=== PATIENT | male | born 1945 ===

== ENCOUNTER 2020-04-20 07:05 | Inpatient (IN) | payer OTHER ==
[~2020-04-20] VITALS: Ht 167.6 cm; Wt 74.8 kg
[2020-04-20] MEDS ORDERED: VALIUM2 MG PO (07:40)
[2020-04-20] MEDS ORDERED: LASIX20 MG PO (07:43)
[2020-04-20] MEDS ORDERED: LINZESS145 MC1 PO (07:44)
[2020-04-20] MEDS ORDERED: CARBIDOPA-LEVO1 EAC2 PO (07:45)
[2020-04-20] MEDS ORDERED: NEUPRO1 EAC4 TD (07:45)
[2020-04-20] MEDS ORDERED: KEPPRA500 MG PO (07:47)
[2020-04-20] MEDS ORDERED: KEPPRA1000 MG PO (07:47)
[2020-04-20] MEDS ORDERED: VIMPAT50 MG PO (07:49)
[2020-04-20] MEDS ORDERED: NUPLAZID34 MG PO (07:50)
[2020-04-20] MEDS ORDERED: ESTER-C 500 MG1 EACH PO (07:51)
[2020-04-20] MEDS ORDERED: BREO ELLIPTA 21 EACH INH (07:51)
[2020-04-20] MEDS ORDERED: PLAVIX75 M1 PO (07:52)
[2020-04-20] MEDS ORDERED: COLACE100 MG PO (07:52)
[2020-04-20] MEDS ORDERED: TYLENOL EXTRA500 M2 PO (07:52)
[2020-04-20] MEDS ORDERED: PROAIR HFA8.5 GM INH (07:53)
[2020-04-20] MEDS ORDERED: OXYGEN NAS (07:54)
[2020-04-20] MEDS ORDERED: PEPCID20 MG PO (07:54)
[2020-04-20] MEDS ORDERED: LISINOPRIL2.5 MG PO (07:54)
[2020-04-20] MEDS ORDERED: PROPRANOLOL HCL20 MG PO (07:55)
[2020-04-20] MEDS ORDERED: ATIVAN1 MG PO (07:55)
[2020-04-20] MEDS ORDERED: MULTIVITAMIN1 EACH PO (07:56)
[2020-04-20] MEDS ORDERED: REMERON15 M2 PO (07:57)
[2020-04-20] MEDS ORDERED: VYTORIN PO (08:04)
--- NOTE | 2020-04-20 09:00 | NUR ---
Treatment Plan meeting was held this a.m. with Dr. Azul RN, RADIOGRAPHY TECHNICIAN-S and Remodeler. Plan for discharge Friday. Pt. will return to [facility].
--- NOTE | 2020-04-20 09:02 | NUR ---
TIA EAST a 74 year old M admitted via ambulance from the ADMITTING as a emergency 72 hr. hold admission. Arrived on unit at 0902. ALLERGIES: ACIPHEX, ADVAIR, ASPIRIN, AILANTIN, IMITREX, LIPITOR, RISPERDAL, ZYPREXA. Vital signs are: [phone]/79. The client signed the following forms with stated understanding: Authorization For The Release of Medical Information, Clothing List, Consent to Voluntary Admission and Hospitalization, Consent and Release Forms/Receipt of Rights, Acknowledgement of Advance Directive Information, Behavioral Health Consent Form, and Informed Consent of Medications. Admitted under the services of Dr. SHALINI GARCIA,[facility]. A search was conducted and hazardous articles were removed. Client was oriented to the unit. JULIA LAY
[2020-04-20 09:25] VITALS: BP 152/79
[2020-04-20] MEDS ORDERED: VITAMIN D3125 MCG PO (10:17)
--- NOTE | 2020-04-20 10:20 | NUR ---
DR. IGNACIO NOTIFIED OF PATIENT BEING ADMITTED TO UNIT. MEDICAITONS AND DIAGNOSIS UPDATED FOR REVIEW. PATIENT WILL BE UNDER THE CARE OF DR. PACKER.
--- NOTE | 2020-04-20 11:00 | NUR ---
DAUGHTER SILVIO CALLED INTO REVIEW MEDICATIONS, THIS NURSE RETURNED CALLED. THIS NURSE INQUIRED PER DR LOYA'S ORDER IF THE PT HAS HAD ANY RECENT CHANGES IN KEPPRA DOSAGE AND WHY WAS THE NUPLAZID DISCONTINUED LAST MONTH. ENTIRE MED LIST REVIEWED WITH DAUGHTER, PER DAUGHTER, THE PT HAS BEEN TAKING THE KEPPRA FOR OVER A YEAR WITHOUT ANY CHANGES, THE NUPLAZID WAS DISCONTIUED ON Mar, PER HER REQUEST BECAUSE SHE THOUGHT IT WAS MAKING HIM HALLUCINATE WORSE. THE DAUGHTER ALSO QUESTIONED IF WE COULD SPEAK WITH THE DR ABOUT HIS KEPPRA AND HAVE IT CHANGED, THIS NURSE ADVISED THAT THE DR WILL NOT MAKE CHANGES TO HIS KEPPRA WITHOUT HAVING A BARBY DR ON STAFF DUE TO HIS SEIZURE HISTORY, THE DAUGHTER STATED "OK I'LL JUST TALK TO HIS DOCTOR AT THE NEXT APPT. BUT I'D LIKE TO TELL YOU THAT HIS INDERAL CAUSES HIM TO HAVE NIGHTMARES, AND THE VIMPAT CAUSES HIM TO BE ANGRY." THIS NURSE ADVISED THAT I WUULD PASS ALONG HER CONCERNS TO THE DOCOTR. DAUGHTER STATED "I GUESS I SHOULD TELL YOU THAT I HAVE ALSO BEEN GIVING HIM CBD GUMMIES THAT ARE 10MG THREE TIMES EVERYDAY." THIS NURSE ASKED WHY AND DAUGHTER STATED "TO HELP HIM." DOCTOR LOYA UPDATED ON MEDS AND DAUGHTERS REQUEST, NO FURTHER ORDERS AT THIS TIME.
--- NOTE | 2020-04-20 11:38 | NUR ---
PHYSICAL THERAPY Screen and PT eval received will follow thank you Supriya Howard PT
[2020-04-20 11:39] LABS: CLARITY TURBID (CLEAR); COLOR YELLOW (YELLOW)
[2020-04-20 11:40] LABS: BILIRUBIN NEGATIVE; BLOOD 1+ (NEGATIVE); GLUCOSE NEGATIVE; KETONE NEGATIVE; LEUKO ESTERASE 3+ (NEGATIVE); NITRITE POSITIVE (NEGATIVE); PH 5.5 (4.5-8.0)
[2020-04-20 11:41] LABS: BACTERIA 1+; RBC 0-2 rbc/hpf (0-2)
[2020-04-20 11:46] LABS: WBC TNTC wbc/hpf (0-5)
--- NOTE | 2020-04-20 12:05 | NUR ---
SPOKE WITH DR IGNACIO RE: PT UA RESULTS, RESULTS REVIEWED WITH DR, NO FURTHER ORDERS AT THIS TIME.
--- NOTE | 2020-04-20 13:00 | NUR ---
CALLED IN TO CHECK ON PT, ASKED IF PT WAS GOING TO CONTINUE TAKING HIS REMERON. THIS NURSE ADVISED THAT PT REMERON WAS DISCONTINUED BY THE DR UPON ADMISSION, STATED, "OH WELL, I WAS GOING TO STOP GIVING THAT TO HIM TONIGHT, BECAUSE HE TOOK IT THE OTHER NIGHT AND WHEN HE WOKE UP IN THE MORNING, HE WAS HAVING TROUBLE WALKING AND WHEN WE LOOKED IT UP IT SAID THAT IT COULD CAUSE PROBLEMS WITH WALKING." THIS NURSE ADVISED THAT THE DR DISCOUNTINED REMERON IN ORDER TO START SEROQUEL.
[2020-04-20] MEDS ORDERED: Sinemet Cr 50/21 TAB PO (13:42)
--- NOTE | 2020-04-20 14:50 | NUR ---
NASAL SWAB COLLECTED FOR COVID 19, PATIENT TOLERATED WELL AND SPECIMEN SENT TO LAB.
--- NOTE | 2020-04-20 15:00 | NUR ---
PATIENT IS ALERT TO PERSON, PLACE, TIME AND SIUTATION; ABLE TO VOICE NEEDS. MOOD IS SLIGHTLY DEPRESSED. DENIES HALLUCINATIONS, DELUSIONS, HI/SI OR PAIN. PATIENT HAS VISUAL TREMORS/EPS TO BILATERAL UPPER EXTREMITIES, EYE BROWS AND BLINKING OF EYES. MEDICATION COMPLAINT. Q 15 MINUTE SAFETY CHECKS. ONE PERSON ASSIST WITH ACTIVITIES OF DAILY LIVING, CONTINENT OF BOWEL AND BLADDER, SET UP FOR MEALS, INTAKES ARE GOOD WITH ADEQUATE FLUIDS. 1 PERSON STANDBY ASSIST WITH AMBULATORY USING WALKER. CONTINUE TO MONITOR FOR AUDITORY AND VISUAL HALLUCINATIONS. PROVIDE ONE ON ONE FOR EMOTIONAL SUPPORT, REORIENT TO REALITY NEEDED.
--- NOTE | 2020-04-20 15:07 | NUR ---
Pt pleasant this afternoon during interaction with this teletypewriter installer. Pt participated in group discussion about simple pleasures in life. Pt spoke of gardening and whitman that he cares for at his apartment. Pt was appropriate in conversation. No hallucinations or delusions were voiced by pt.
[2020-04-20 20:00] VITALS: BP 150/84
--- NOTE | 2020-04-20 20:13 | NUR ---
24 HR chart check completed.
--- NOTE | 2020-04-20 21:18 | NUR ---
MILDLY DEPRESSED MOOD. PT STATED THAT HE "FEELS BETTER. NAPPED THIS AFTERNOON & FELT BETTER WHEN I WOKE UP". ALERT & ORIENTED TO PERSON, PLACE, TIME & SITUATION. DENIES SENSORY DISTURBANCE & NONE IS EVIDENT. NO DELUSIONAL STATEMENTS VOICED. PLEASANT & APPROPRIATE INTERACTIONS WITH STAFF. SAT IN THE DINING ROOM & KEPT TO HIMSELF. SPENT LEISURE TIME COLORING. ATE SNACK. COMPLAINT TAKING MEDICATIONS WHOLE & MIXED IN APPLESAUCE. VISUAL TREMORS NOTED ESPECIALLY TO LEFT ARM. PT IS AWARE OF TREMORS & DOES NOT USE LEFT HAND TO ASSIST WITH EATING/DRINKING. VERY MILD TO RIGHT HAND NONE NOTED TO EYES & EYEBROWS THIS EVENING.
--- NOTE | 2020-04-21 05:45 | NUR ---
PT HAS SLEPT PAST 2244
[2020-04-21 07:16] LABS: BASO % 0.6 % (0.0-1.0); EOS # 0.2 10*3/uL (0.0-0.4); EOS % 2.1 % (1.0-4.0); HEMATOCRIT 42.2 % (42.0-52.0); LYMPH % 28.3 % (27.0-41.0); MEAN CELL VOLUME 97.5 fl (80.0-94.0); MEAN CORPUSCULAR HGB 30.5 pg (27.0-31.0); MEAN CORPUSCULAR HGB CONC 31.3 g/dl (33.0-37.0); MEAN PLATELET VOLUME 9.8 fl (9.6-12.3); MONO % 14.6 % (3.0-9.0); NEUT # 3.8 10*3/uL (2.3-7.9); NEUT % 54.1 % (47.0-73.0); PLATELET COUNT AUTOMATED 262 10*3/uL (130-400); RED BLOOD COUNT 4.33 10*6/uL (4.50-5.90); RED CELL DISTRI WIDTH 12.9 % (0-14.5); WHITE BLOOD COUNT 7.1 10*3/uL (4.8-10.8)
[2020-04-21 07:26] VITALS: BP 112/69
[2020-04-21 07:32] LABS: ALBUMIN 3.1 gm/dl (3.1-4.5); ALKALINE PHOSPHATASE 79 U/L (45-117); BUN 16 mg/dl (7-24); CHLORIDE 102 mmol/L (98-107); CHOLESTEROL 108 mg/dL (<200); CREATININE 0.73 mg/dL (0.70-1.30); HDL CHOLESTEROL 54 mg/dl (40-60); LDL CHOLESTEROL 43 mg/dL (9-159); SGOT/AST 17 IU/L (3-35); SGPT/ALT 12 U/L (12-78); SODIUM 140 mmol/L (136-145); TOTAL PROTEIN 6.9 gm/dL (6.4-8.2); TRIGLYCERIDES 54 mg/dl (<150); VLDL CHOLESTEROL 11 mg/dL (6-40)
[2020-04-21 07:39] LABS: THYROID STIM HORMONE (HS) 0.991 uIU/ml (0.358-4.75)
--- NOTE | 2020-04-21 07:49 | NUR ---
Occupational therapy order and nursing screen received. Will follow up with the patient for completion of an OT eval. Thank you. Rebeca Walker OTR/L
--- NOTE | 2020-04-21 08:30 | NUR ---
Treatment Plan meeting was held this a.m. with PARVEEN Smith, RN, AT, LUBA-S and Tariff Clerk. Plan for discharge Next Week. Pt. will return home at discharge.
[2020-04-21 08:35] LABS: VITAMIN D, 25-HYDROXY 54.1 ng/mL (30-100)
--- NOTE | 2020-04-21 09:05 | NUR ---
DR. BENTON ON UNIT TO ASSESS PATIENT.
--- NOTE | 2020-04-21 11:36 | NUR ---
AM GROUP PT ATTENDED MORNING GROUP THERAPY AND PARTICIPATED BY PAINTING A BIRDHOUSE. PT WAS ON TASK AND TALKATIVE. PT EXPRESSED NO A.V. HALLUCINATIONS IN GROUP NOR WAS AGGRESSIVE.
--- NOTE | 2020-04-21 11:55 | NUR ---
Faxed admission clinical to [facility], awaiting response.
--- NOTE | 2020-04-21 12:52 | NUR ---
P: SLIGHT DEPRESSED BUT FEELING BETTER. I: ONE ON ONE FOR EMOTIONAL SUPPORT, ENCOURAGE GROUP ACTIVITIES AND SOCIAL INTERACTIONS WITH STAFF AND OTHER PATIENTS. R: EFFECTIVE. PATIENT IS ALERT TO PERSON, PLACE, TIME AND SITUATION; ABLE TO VOICE NEEDS. MOOD IS SLIGHTLY DEPRESSED. IMPROVEMENT NOTED SINCE YESTERDAY. DENIES ANY HALLUCINATIONS, DELUSIONS, HI/SI OR PAIN. NO RESPONSE TO INTERNAL STIMULI OBSERVED. PATIENT ATTEND AND PARTRICIPATED IN GROUP SESSION. PATIENT PAINTING BIRD HOUSE. NO TREMORS TO LEFT HAND OBSERVED WHILE PAINTING. NO REPEATIVE EYE BROW RAISING OR EYE BLINKING OBSERVED. MEDICATION COMPLAINT WITH EDUCATION PROVIDED. Q 15 MINUTE SAFETY CHECKS MAINTAINED. ONE PERSON ASSIST WITH ACTIVITIES OF DAILY LIVING, CONTINENT OF BOWEL AND BLADDER. SET UP FOR MEALS, INTAKES ARE GOOD WITH ADEQUATE FLUIDS. AMBULATES USING WHEELED WALKER. P: CONTINUE TO MONITOR FOR MOOD, INCREASED CONFUSION, HALLUCINATIONS OR DELUSIONS. PROVIDE ONE ON ONE, REDIRECTION/ORIENTATION TO REALITY NEEDED.
--- NOTE | 2020-04-21 15:35 | NUR ---
PM GROUP PT ATTENDED AFTERNOON GROUP THERAPY AND PARTICIPATED BY PAINTING HIS BIRDHOUSE. PT WAS ON TASK AND TALKATIVE. PT EXHIBITED NO ADVERSE BEHAVIORS WHILE IN GROUP.
[2020-04-21 19:56] VITALS: BP 115/67
--- NOTE | 2020-04-21 20:14 | NUR ---
24 HR chart check completed.
--- NOTE | 2020-04-21 22:35 | NUR ---
P-MILDLY DEPRESSED MOOD. I-ALLOW PT TO VERBALIZE FEELINGS & PROVIDE EMOTIONAL SUPPORT R- PT STATED THAT HE "FEELS BETTER". APPEARS MILDLY DEPRESSED. SAT IN THE DINING ROOM COLORING WITH COLORED PENCILS. ALERT & ORIENTED TO PERSON, PLACE, TIME & SITUATION. DENIES SENSORY DISTURBANCE & NONE IS EVIDENT. NO DELUSIONAL STATEMENTS VOICED. PLEASANT & APPROPRIATE INTERACTIONS WITH STAFF. ATE SNACK. COMPLAINT TAKING MEDICATIONS WHOLE & MIXED IN APPLESAUCE. VISUAL TREMORS NOTED ESPECIALLY TO LEFT ARM. PT IS AWARE OF TREMORS & DOES NOT USE LEFT HAND TO ASSIST WITH EATING/DRINKING. VERY MILD TO RIGHT HAND. P-CONTINUE TO MONITOR
--- NOTE | 2020-04-22 05:26 | NUR ---
PT HAS SLEPT PAST 2314
[2020-04-22 07:50] VITALS: BP 145/82
--- NOTE | 2020-04-22 09:13 | NUR ---
on unit to see pt at this time. Made aware of urine culture 50,000 moderate GNB - ESBL. Reviewed culture/sensitivity. states he will d/c Ceftin. No need for further atb tx.
--- NOTE | 2020-04-22 11:06 | NUR ---
notified pt requesting Breo inhaler. Placed on hold at admission per med rec. States she will review.
--- NOTE | 2020-04-22 11:14 | NUR ---
P- Pt denies feeling sad, depressed or hopeless. States he is "just a little tired". Pt voices desire to go home because he misses his . I- Orientation, mood and behaviors assessed. Assessed pt for SI/HI, intent or plan. Assessed pt for s/s hallucinations, paranoia and/or delusions. Medications administered as per physician's orders. Assistance with ADL care provided as needed. Encouraged pt to attend and participate in taylor milieu groups and activities. R- Pt is alert and oriented to person, place, approximate time and situation. Pt states it is March 22, 2020. Reorientation provided and effective. Resps easy and even on room air. Mood appears stable, affect blunted. Speech is soft, coherent, able to make needs known without difficulty. Pt denies feeling sad, depressed, anxious or hopeless. Pt reports feeling "just a little tired" and is missing his . Pt states he is feeling better. Pt denies SI/HI, intent or plan. Pt denies hallucinations, no response to internal stimuli noted. No paranoia or delusions noted. No aggressive or threatening behaviors. Pt is medication compliant without difficulty. Calm and cooperative. Pt called and had pleasant conversation with on phone. Participating in group craft activities. Tremors noted BUE. No distress noted. P- Plan to continue current treatment. Continue to monitor mood and behaviors, provide appropriate reorientation and redirection as needed. Continue to encourage medication compliance as well as group attendance and participation.
--- NOTE | 2020-04-22 14:22 | NUR ---
Spoke with pt's soco Wahl regarding needing home medications Breo and Neupro patch d/t these medications being nonformulary. Maryuri states she can drop them off later this evening after she gets off work around 8pm. Pt made aware.
--- NOTE | 2020-04-22 19:42 | NUR ---
24 HR chart check completed.
[2020-04-22 19:48] VITALS: BP 138/66
--- NOTE | 2020-04-22 21:50 | NUR ---
P-MILDLY DEPRESSED MOOD. I-ALLOW PT TO VERBALIZE FEELINGS & PROVIDE EMOTIONAL SUPPORT R-PT STATED THAT HE IS "FEELING BETTER". SAT IN THE DINING ROOM COLORING WITH COLORED PENCILS. ALERT & ORIENTED TO PERSON, PLACE, TIME & SITUATION. DENIES SENSORY DISTURBANCE & NONE IS EVIDENT. NO DELUSIONAL STATEMENTS VOICED. PLEASANT & APPROPRIATE INTERACTIONS WITH STAFF. ATE SNACK. COMPLAINT TAKING MEDICATIONS WHOLE & MIXED IN APPLESAUCE. VISUAL TREMORS NOTED ESPECIALLY TO LEFT ARM. DAUGHTER DID BRING HOME MEDS OF BREO & NEUPRO IN P-CONTINUE TO MONITOR
--- NOTE | 2020-04-22 23:01 | NUR ---
PTS DAUGHTER BROUGHT IN HEALTH CARE POWER OF SHIPYARD LABORER & LIVING WILL PAPERS. COPIES MADE & PUT ON THE CHART. ORIGINALS PLACED IN YELLOW ENVELOPE & ARE TO BE RETURNED WITH PT ON DISCHARGE.
[2020-04-23 07:42] VITALS: BP 144/80
--- NOTE | 2020-04-23 09:30 | NUR ---
on unit to see pt at this time, update given.
--- NOTE | 2020-04-23 15:14 | NUR ---
No adverse moods or behaviors noted this shift. Pt is alert and oriented x4. Resps easy and even on room air. Mood appears stable with appropriate affect. Speech is soft, coherent, able to make needs known without difficulty. Pt states he is feeling better, just a little tired at times. Pt denies SI/HI, intent or plan. Pt denies hallucinations, no response to internal stimuli noted. No paranoia or delusions noted. Pt is calm, pleasant and cooperative. No aggressive behaviors. Pt is medication compliant without difficulty. No distress noted. Plan to continue current treatment, continue to monitor mood and behaviors, provide appropriate reorientation and redirection as needed. Continue to encourage medication compliance as well as group attendance and participation.
[2020-04-23 20:00] VITALS: BP 146/73
--- NOTE | 2020-04-23 20:55 | NUR ---
Patient alert and oriented x4. Mood is calm,cooperative,and slightly depressed. Patient denies any SI/HI or hallucinations. No s/s of any responding to internal stimuli. Patient interactive with staff and other patients while in diningroom coloring pictures during snack. Patient compliant with HS medications without any difficulty. Provided 1:1 for emotional support and therapeutic communication. Plan to continue to encourage medication compliance. Also continue to provide emotional support and therapeutic communication. Will also continue to monitor moods/behaviors. Q 15 minute safety checks continued and maintained. See [facility] flowsheet for further documentation.
--- NOTE | 2020-04-24 05:44 | NUR ---
Patient slept approx. 7 hours throughout shift. Q 15 minute safety checks continued and maintained.
--- NOTE | 2020-04-24 07:40 | NUR ---
Faxed continued review stay clinical to [facility]. Awaiting response.
[2020-04-24 07:48] VITALS: BP 133/72
--- NOTE | 2020-04-24 11:06 | NUR ---
Treatment team meeting held this AM with Sarah Kwok CONFERENCE SERVICES MANAGER, RN, visual merchandising coordinator, kit planner, and LUBA-Judy. Discharge plan is for pt to return home with VNA and follow-up at [facility]. Tentative discharge date is tomorrow.
--- NOTE | 2020-04-24 11:32 | NUR ---
Contacted bert in [facility] for a follow up appointment. They stated patient has not been there since 2019 and would be considered a new patient. Faxed face sheet/H&P per her request to start referral for follow up appointment. Waiting for return call with appointment date and time
--- NOTE | 2020-04-24 11:44 | NUR ---
Patient has a follow up appoitment with [facility] on June 22 at 1:20 PM. Patients daughter is aware.
--- NOTE | 2020-04-24 12:15 | NUR ---
Called and spoke to Rosetta regarding possible discharge tomorrow 04/25/2020. She stated she would call her daughter and they would both be able to come down tomorrow and pick him up; stated I would call her in the morning to have a more accurate time of D/C.
--- NOTE | 2020-04-24 14:36 | NUR ---
No adverse moods or behaviors noted this shift. Pt is alert and oriented x4. Resps easy and even on room air. Mood appears stable with appropriate affect. Speech is soft, coherent, able to make needs known without difficulty. Pt states he is feeling better. Pt denies SI/HI, intent or plan. Pt denies hallucinations, no response to internal stimuli noted. No paranoia or delusions noted. Pt is calm, pleasant and cooperative. No aggressive behaviors. Pt is medication compliant without difficulty. Pt participating appropriately in group activies with peers. No distress noted. Plan to continue current treatment, continue to monitor mood and behaviors, provide appropriate reorientation and redirection as needed. Continue to encourage medication compliance as well as group attendance and participation.
--- NOTE | 2020-04-24 15:46 | NUR ---
PM GROUP/LEISURE INTERESTS PT ATTENDED AFTERNOON GROUP THERAPY AND PARTICIPATED BY WORKING ON HIS [employer] PROJECT. PT WAS ON TASK AND FOCUSED. PT ASKED SEVERAL TIMES, "DO YOU KNOW IF I WILL BE GOING HOME TOMORROW?" PT EXHIBITED NO ADVERSE BEHAVIORS WHILE IN GROUP
[2020-04-24 19:11] VITALS: BP 155/80
--- NOTE | 2020-04-24 22:24 | NUR ---
Patient alert and oriented x4. Mood is calm,cooperative,and slightly depressed. Patient denies any SI/HI or hallucinations. No s/s of any responding to internal stimuli. Patient interactive with staff and other patients while in diningroom coloring pictures during snack. Patient compliant with HS medications without any difficulty. Provided 1:1 for emotional support and therapeutic communication. Plan to continue to encourage medication compliance. Also continue to provide emotional support and therapeutic communication. Will also continue to monitor moods/behaviors. Q 15 minute safety checks continued and maintained. See [facility] flowsheet for further documentation.
--- NOTE | 2020-04-25 05:28 | NUR ---
Patient slept approx. 6.5 hours throughout shift. Q 15 minute safety checks continued and maintained.
--- NOTE | 2020-04-25 07:34 | NUR ---
Patient requiring home health services, referrals faxed to [facility] and [facility] services. Waiting on review/acceptance.
[2020-04-25 07:39] VITALS: BP 153/82
--- NOTE | 2020-04-25 08:08 | NUR ---
[facility] stating they do not service the [facility]. Still waiting on [facility] to review/accept.
[2020-04-25] MEDS ORDERED: DIAZEPAM2 MG PO (09:51)
[2020-04-25] MEDS ORDERED: QUETIAPINE FUMA50 M1 PO (09:51)
[2020-04-25] MEDS ORDERED: QUETIAPINE FUMA25 MG PO (09:51)
--- NOTE | 2020-04-25 09:58 | NUR ---
Treatment meeting held this AM with Sarah Teran ACCESS DIRECTOR, RN, clinic coordinator, MELISSA and planner/scheduler. Patient is discharged to return home today, home health orders/referral faxed to [facility]. Will also fax referral to [facility] per request of Sarah Teran.
--- NOTE | 2020-04-25 10:15 | NUR ---
CALL PLACED TO HOSPITALIST #1 FOR , SPOKE TO , MADE AWARE OF DISCHARGE FOR TODAY AT 1PM HOME WITH FAMILY.
--- NOTE | 2020-04-25 10:22 | NUR ---
Spoke with pt this AM. Pt states that he is "feeling good and ready to go home." Pt denies hallucinations. He was appropriate in conversation.
--- NOTE | 2020-04-25 10:25 | NUR ---
Treatment team held this AM with Sarah Herron NP, RN, medication coordinator, senior program planner, and MELISSA. Plan is to discharge pt today to home with VNA and follow-up at [facility].
--- NOTE | 2020-04-25 10:26 | NUR ---
Contacted Alexandre in [facility], they do not provide bubble packs for meds.
--- NOTE | 2020-04-25 10:28 | NUR ---
Family meeting held this AM with pt's daughter Maryuri Arroyo. Discussed pt's current and prior status. Discussed discharge needs and referral to VNA and exploring options for prepackaged meds for pt at home.
--- NOTE | 2020-04-25 10:32 | NUR ---
Spoke with [facility] at [phone] and started referral. They stated they will be calling the patient to start process. They do service the [facility].
--- NOTE | 2020-04-25 11:40 | NUR ---
AM GROUP PT WAS PRESENT AT THE START OF MORNING GROUP THERAPY BUT LEFT THE DAYROOM TO READY FOR DISCHARGE FROM THE UNIT THIS AFTERNOON.
--- NOTE | 2020-04-25 12:42 | NUR ---
Contacted Jose Carlos in [facility] @ [phone] to ask about follow up appointment. She stated the follow up appointment is on 05/23/2020 at 4:20 PM with Dewey Wright
--- NOTE | 2020-04-25 12:48 | NUR ---
Attemtped to contact [facility] to ask if they are accepting this referral. Unable to contact a live person, left a voicemail.
--- NOTE | 2020-04-25 13:24 | NUR ---
PT DISCHARGED AT THIS TIME TO HOME WITH FAMILY VIA PRIVATE VEHICLE. ALL DISCHARGE INSTRUCTIONS REVIEWED WITH PT PRIOR TO DISCHARGE. MEDICATIONS REVIEWED WITH VIA TELEPHONE WITH HER STATED UNDERSTANDING OF ALL. ENCOURAGED PT OR FAMILY TO PHONE UNIT IF THEY ENCOUNTER ANY QUESTIONS. ALL PERSONAL BELONGINGS WERE SENT HOME WITH THE PT INCLUDING HOME MEDS (BREO AND NEUPRO) AND WALKING CANE. PT LEFT THE UNIT IN STABLE CONDITION AT [address] [facility] MENTAL HEALTH WORKER.
--- NOTE | 2020-04-25 13:27 | NUR ---
IP 5 days arnel per Kathy at [facility], LCD 04/24. Ref # [id number]
--- NOTE | 2020-04-25 13:28 | NUR ---
Received call from Anjana at [facility]. They are accepting this patient; notified patient is discharged today.
--- NOTE | 2020-04-25 13:32 | NUR ---
Faxed discharge instructions and summary to [facility]
--- NOTE | 2020-04-25 13:47 | NUR ---
Patient discharged to home with his today. Follow-up was scheduled with [facility] on 05/23/20 at 16:[address] Wright and with Dr King on 05/04/20 at 14:00. While at [facility], pt's hallucinations and paranoid delusions resolved. Pt will also receive VNA through [facility]. Pt was pleasant with peers and staff. He participated in programming.
--- NOTE | 2020-04-25 14:29 | NUR ---
Discharge orders and discharge summary were faxed to [facility] and Dr King, pt's PCP.
--- NOTE | 2020-04-25 15:29 | NUR ---
Recieved call from pt's asking where his medications were escribed to. Advised the script for Seroquel was was escribed to [facility] in [place] and that they would have to take the paper script for Valium to [facility]. states "No. I had a call from a woman named Shantelle from [facility] who left a message on my machine. I don't know what she wants. I have her number". This RN asks if she was tried to continuous pickling line pickler [facility]. states "[facility]". provides phone number, for Shantelle. This RN advises I would call the pharmacy and attempt to sort this out for her and call her back. Spoke to pharmacist at [facility] in [place] and confirmed that they had recieved e-prescriptions for Seroquel 25mg at AM and 50mg at HS. Pharmacists states those scripts are ready to be picked up. Spoke to Elvira in [facility] who advises [facility] offers a service called [facility] which this pt was referred to for possible blister packs to assist with medication compliance. This RN phones pt's back and advises of the above. seems hesistant regarding the [facility] service and states "I have been managing his medications for 22 years, I can handle it". This RN encourages to phone Shantelle back to learn more about what this service has to offer. [facility] made [facility] the above and will reach out to family to discuss further.
--- NOTE | 2020-04-27 11:33 | NUR ---
JUDY COMPLETED POST DISCHARGE WELLNESS FOLLOW UP FORM WITH PATIENTS SPOUSE LYN. NO SAFETY CONCERNS WERE NOTED. SHE REPORTED PATIENT HAS BEEN SLEEPING AND EATING WELL. SHE STATED HE WAS A LITTLE TIRED IN THE EVENING WITH HIS LAST DOSE OF SEROQUEL FOR THE DAY. COURSE DEVELOPER EXPLAINED DROWSINESS IS A SIDE EFFECT. COURSE DEVELOPER WENT OVER TIMES THE MEDICATIONS SHOULD BE GIVEN. COURSE DEVELOPER WENT OVER THE PATIENTS FOLLOW UP APPOINTMENT. SHE EXPRESSED NO SAFETY CONCERNS AT THE TIME OF THIS CALL.
== END 2020-04-25 13:24 | disposition home health service (06) | DRG 885 ==
LOC: 3N 07:05
PROVIDERS: ADMIT Psychiatry & Neurology Psychiatry; ATTEND Psychiatry & Neurology Psychiatry
DX: F23 Brief psychotic disorder (principal); N39.0 Urinary tract infection, site not specified; G20 Parkinson's disease; F32.9 Major depressive disorder, single episode, unspecified; N40.0 Benign prostatic hyperplasia without lower urinary tract symptoms; I25.10 Atherosclerotic heart disease of native coronary artery without angina pectoris; K57.90 Diverticulosis of intestine, part unspecified, without perforation or abscess without bleeding; G40.909 Epilepsy, unspecified, not intractable, without status epilepticus; E55.9 Vitamin D deficiency, unspecified; Z20.828 Contact with and (suspected) exposure to other viral communicable diseases; I10 Essential (primary) hypertension; Z86.73 Personal history of transient ischemic attack (TIA), and cerebral infarction without residual deficits; Z87.442 Personal history of urinary calculi; Z85.51 Personal history of malignant neoplasm of bladder; Z89.022 Acquired absence of left finger(s); Z95.1 Presence of aortocoronary bypass graft; Z87.891 Personal history of nicotine dependence; Z88.6 Allergy status to analgesic agent; Z88.8 Allergy status to other drugs, medicaments and biological substances; Z80.1 Family history of malignant neoplasm of trachea, bronchus and lung; Z79.899 Other long term (current) drug therapy